=== PATIENT | male | born 1990 | race Caucasian/White ===

== ENCOUNTER 2018-11-24 16:08 | Emergency (ER) | payer OTHER ==
[~2018-11-24] VITALS: Ht 185.4 cm; Wt 79.4 kg
[2018-11-24 16:10] VITALS: BP 130/78
[2018-11-24 16:53] VITALS: BP 130/78
--- NOTE | 2018-11-24 16:53 | NUR ---
PT MEDICALLY CLEARED BY ED MD DR HOLLAND, PT DISCHARGED WITH [facility]. PT IN STABLE CONDITION AMBULATORY UPON DISCHARGE.
== END 2018-11-24 16:53 ==
LOC: MED 16:08
DX: Z04.1 Encounter for examination and observation following transport accident (principal); Z02.89 Encounter for other administrative examinations; V89.2XXA Person injured in unspecified motor-vehicle accident, traffic, initial encounter; Y93.89 Activity, other specified; Y92.89 Other specified places as the place of occurrence of the external cause; Y99.8 Other external cause status
CPT/HCPCS: 99283